=== PATIENT | female | born 1945 | race Caucasian/White ===

== ENCOUNTER 2019-10-22 09:44 | Inpatient (IN) ==
[2019-10-22] MEDS ORDERED: DUONEB (A & A) INH ONE (10:14)
[2019-10-22] MEDS ORDERED: SOLU-MEDROL IV ONE (10:15)
--- NOTE | 2019-10-22 10:24 | PROVIDER DOCUMENTATION ---
HPI-General Adult - General Chief Complaint: Head Injury Stated Complaint: FALL,HEAD INJURY Time Seen by Provider: 10/22/19 09:46 Source: patient, family Allergies/Adverse Reactions: Patient Allergies Allergy/AdvReac Type Severity Reaction Status Date / Time Sulfa (Sulfonamide Allergy Unknown Unknown Verified 10/22/19 10:53 Antibiotics) Home Medications: Home Medication List Medication Instructions Recorded Confirmed Last Taken Type Atorvastatin Calcium [Lipitor] 20 mg PO QHS 09/08/13 10/22/19 Unknown History Gabapentin [Neurontin] 300 mg PO QHS 09/08/13 10/22/19 Unknown History Indapamide [Lozol] 1.25 mg PO DAILY 09/08/13 10/22/19 Unknown History Tolterodine Tartrate [Detrol LA] 4 mg PO DAILY 09/08/13 10/22/19 Unknown History Tramadol [Ultram] 50 mg PO Q8HR PRN 09/08/13 10/22/19 Unknown History Albuterol Sulfate 2.5 mg INHALATION BID 10/22/19 10/22/19 Unknown History Alendronate [Fosamax] 70 mg PO DIRECTED 10/22/19 10/22/19 Unknown History Aspirin 325 mg PO DAILY 10/22/19 10/22/19 Unknown History Benzonatate [Tessalon Perle] 100 mg PO TID PRN 10/22/19 10/22/19 Unknown History Budesonide 0.25 mg INHALATION BID 10/22/19 10/22/19 Unknown History Calcium Carbonate [Calcium] 600 mg PO DAILY 10/22/19 10/22/19 Unknown History Dronedarone HCl [Multaq] 400 mg PO BID 10/22/19 10/22/19 Unknown History Fexofenadine HCl [Allergy Relief] 1 tab PO QHS 10/22/19 10/22/19 Unknown History Fluticasone Propionate 1 spray INTRANASAL QHS 10/22/19 10/22/19 Unknown History Fluticasone/Salmet 250/50 INH 1 puff INH QHS 10/22/19 10/22/19 Unknown History [Advair 250/50 Diskus] Guaifenesin E.r. [Mucinex] 600 mg PO BID 10/22/19 10/22/19 Unknown History Iron,Carbonyl/Ascorbic Acid [Iron 1 tab PO DAILY 10/22/19 10/22/19 Unknown History 100-Vitamin C Tablet] Losartan Potassium 50 mg PO QHS 10/22/19 10/22/19 Unknown History Montelukast [Singulair] 10 mg PO QHS 10/22/19 10/22/19 Unknown History Multivitamin [Multivitamins] 1 ea PO DAILY 10/22/19 10/22/19 Unknown History Omeprazole 40 mg PO DAILY 10/22/19 10/22/19 Unknown History Potassium Chloride E.r. [Klor-Con] 20 meq PO BID 10/22/19 10/22/19 Unknown History Sertraline HCl [Zoloft] 100 mg PO DAILY 10/22/19 10/22/19 Unknown History - History of Present Illness -Gen Adult Nature of Presenting Problems: [id number] presents to the ER accompanied by her grandson. 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 However, she can answer some yes and no questions. Grandson reports that the patient fell this morning getting out of her wheelchair going to the bathroom. She has bruising to the right with hematoma to the right side of her forehead and bruising with mild swelling to the right orbital area. She has bruising to the right hand and wrist with a large hematoma to the right forearm. She also has a large bruise to her right hip. All these areas the patient reports pain with a "yes". While palpating the rest of her body, she answers no. The grandson called his Mother, who reports over the phone, that sometime last night, the patient's gave her a granola bar, to which she began vomiting. Shortly after, the patient began coughing and wheezing then running a low grade fever of 100.2. The pt does have a productive cough. Reported history of multiple episodes of pneumonia due to aspiration. She is non-toxic in appearance and afebrile at this time. She is Awake and Alert. Location of Pain/Injury: reports: head, face, upper extremity, other (right hip) Onset/Duration: reports: just prior to arrival Review of Systems - Adult - REVIEW OF SYSTEMS - ADULT Constitutional: reports: see HPI, fever Eyes: reports: no symptoms reported Ears, Nose, Mouth & Throat: reports: no symptoms reported. denies: ear discharge, ear pain Cardiovascular: reports: no symptoms reported. denies: chest pain Respiratory: reports: see HPI, cough, wheezing. denies: dyspnea on exertion, shortness of breath Gastrointestinal: reports: no symptoms reported. denies: abdominal pain, nausea, vomiting Genitourinary: reports: no symptoms reported Musculoskeletal: reports: see HPI Integumentary: reports: see HPI Neurological: reports: see HPI, loss of balance. denies: dizziness/vertigo, hea dache/migraines Psychiatric: reports: no symptoms reported Endocrine: reports: no symptoms reported Hematologic/Lymphatic: reports: no symptoms reported Allergic/Immunologic: reports: no symptoms reported All Other Systems: Reviewed and Negative Past History - Adult - PAST MEDICAL HISTORY-ADULT Review of Records: reports: Old Records Reviewed, Nursing Assessment Review, Medications Reviewed, Social history reviewed & non-contributory. Major Childhood Illnesses: reports: denies history Cardiovascular: reports: denies history, A-Fib, HTN, hyperlipidemia Respiratory: reports: pneumonia Gastrointestinal: reports: denies history Obstetrical/Gynecological: reports: denies history Genitourinary: reports: denies history Musculoskeletal: reports: denies history Neurological: reports: CVA (with residual right hemiparesis, with some expressive aphasia) Psychiatric: reports: denies history Endocrine/Immune: reports: denies history Other Conditions: reports: denies history - PRIOR SURGERIES/PROCEDURES Surgical/Procedure History: reports: reviewed, not pertinent, hysterectomy - IMMUNIZATION STATUS Childhood Immunizations: See Nurse Assessment Flu Vaccine: See Nurse Assessment - FAMILY HISTORY Family History: reviewed, not pertinent - SOCIAL HISTORY Smoking: denies, non-smoker Substance Use: none/never Alcohol Use Frequency: never Living Situation: family Physical Exam-General - PHYSICAL EXAM-ADULT Initial Vital Signs Reviewed: Yes - CONSTITUTIONAL General Appearance: alert, no apparent distress - EYES Eyes: PERRL/EOMI, pink conjunctivae - HEAD, EARS, NOSE, MOUTH & THROAT HENMT: moist mucous membranes, TMs normal, frontal tenderness (right forehead) - NECK Neck: non-tender, full range of motion, supple. negative: lymphadenopathy - RESPIRATORY Respiratory: no respiratory distress, no accessory muscle use, decreased breath sounds, rhonchi (bilateral lower lobes) - CARDIOVASCULAR Cardiovascular: regular rate, rhythm, no edema - GASTROINTESTINAL (ABDOMEN) Abdominal Exam: non tender, soft - MUSCULOSKELETAL Back Exam: normal inspection Extremity: normal capillary refill. negative: normal gait (rightt sided weakness due to previous CVA), deformity - SKIN Integumentary: abrasion(s) (right hand), ecchymosis (right forehead, right orbital area, right forearm, right hand, right wrist), tenderness (right forehead, right orbital area, right forearm, right hand, right wrist), other (contusion right forehead, right forearm) - PSYCHIATRIC Psych/Mental Status: normal mood/affect (baseline per family) Progress - PLAN OF CARE/RESULTS Progress/Plan/Lab Results: Vital Signs - 8 hr 10/22/19 09:49 Temperature 98.6 F Pulse Rate 74 Respiratory Rate 19 Blood Pressure 132/58 O2 Sat by Pulse Oximetry 94 L Orders Category Date Time Status Saline Loc NOW Care 10/22/19 10:14 Active CHEST-2 VIEWS [RAD] Stat Exams 10/22/19 10:[address] ANGIOGRAM HEAD/NECK [CT] Stat Exams 10/22/19 10:[address] MAXILLOFACIAL(SINUS) W/O CO [CT] Stat Exams 10/22/19 10:09 Ordered FOREARM-RIGHT [RAD] Stat Exams 10/22/19 10:09 Ordered HAND COMPLETE RIGHT [RAD] Stat Exams 10/22/19 10:09 Ordered WRIST COMPLETE RIGHT [RAD] Stat Exams 10/22/19 10:09 Ordered XRAY PELVIS W/HIP 2-3VW RT [RAD] Stat Exams 10/22/19 10:11 Ordered CBC WITH ELECTRONIC DIFF [HEME] Stat Lab 10/22/19 10:09 Uncollected CK PROFILE [SP CHEM] Stat Lab 10/22/19 10:14 Uncollected COMPREHENSIVE METABOLIC PANEL [CHEM] Stat Lab 10/22/19 10:09 Uncollected LACTATE, PLASMA [CHEM] Stat Lab 10/22/19 10:14 Uncollected TROPONIN T HIGH SENSITIVITY Stat Lab 10/22/19 10:14 Uncollected UA NIMS W/REFLEX CULT [URINALYSIS] Stat Lab 10/22/19 10:09 Uncollected Albuterol 2.5MG/Ipratrop 0.5MG [Duoneb (A & A)] Med 10/22/19 10:14 Discontinued 3 ml INH NOW ONE Methylprednisolone Sod Succ [Solu-Medrol] Med 10/22/19 10:15 Discontinued 125 mg IV NOW ONE Aerosol Treatments Routine Oth 10/22/19 10:15 Active Aerosol Treatments Stat Oth 10/22/19 10:15 Active EKG [EKG] Stat Ther 10/22/19 10:14 Ordered Result Diagrams: 10/22/19 10:15 10/22/19 10:15 - REASSESSMENT Reassessment #1 Time Reassessed: 11:55 Status: unchanged (patient still awake and alert, no new injuries or complaints noted) - XRAY 1 XRAY: Right XRAY Study: Forearm Impression: Normal, See EMR Report ( FINDINGS: There is no discrete fracture, dislocation, or significant intrinsic osseous lesion. The visualized joint spaces are essentially unremarkable. There may be mild soft tissue edema at the proximal forearm. IMPRESSION: Suggestion of mild soft tissue edema but no evidence of acute osseous abnormality.) 2 XRAY: Right XRAY Study: Wrist, Hand Impression: See EMR Report (Hand:FINDINGS: There is no discrete fracture, dislocation, or significant intrinsic osseous lesion. There are mild IP joint degenerative changes and there is joint space narrowing at the radiocarpal joint. The surrounding soft tissues are essentially unremarkable. Wrist: IMPRESSION: No evidence of acute osseous abnormality. FINDINGS: There is no discrete fracture, dislocation, or significant intrinsic osseous lesion. There is at least mild degenerative joint space narrowing at the radiocarpal joint. There is mild widening of the scapholunate joint. This can be associated with a scapholunate ligament injury. If so, it is not necessarily acute. The surrounding soft tissues are essentially unremarkable. IMPRESSION: Mild degenerative changes and mild widening of the scapholunate joint space. Please see above discussion.) 3 XRAY: Right XRAY Study: Hip Impression: Normal, See EMR Report (FINDINGS: There are degenerative changes at the lower lumbar spine. There is no discrete fracture, dislocation, or significant intrinsic osseous lesion involving the pelvis or hips. The hip joint spaces are fairly well-preserved. The surrounding soft tissues are essentially unremarkable. IMPRESSION: No evidence of acute osseous abnormality.) 4 XRAY Study: Chest Impression: See EMR Report (FINDINGS: The central vasculature is prominent and there are vague infiltrates at both lung bases likely representing pulmonary edema with pulmonary venous congestion. There is no definite pleural fluid collection or pneumothorax. There is cardiomegaly. IMPRESSION: Cardiomegaly with suggestion of pulmonary venous congestion and mild coronary edema. Electronically signed by Rg Rodriguez 10/22/2019 10:51 AM) - CT/MRI 1 CT Study: Head, Neck Impression: See EMR Report ( Head: There is extensive encephalomalacia in the left MCA distribution, stable. There is no definite acute infarct given the limited sensitivity of CT versus MRI. There is no discrete intracranial mass, mass effect, or intracranial hemorrhage. There is right frontal scalp edema. The calvaria is intact. C-spine: There is advanced multilevel degenerative disc disease with loss of disc space height and marginal osteophyte formation. It is very similar to the previous study. Otherwise, there is no discrete fracture, subluxation, or intrinsic osseous lesion. The surrounding soft tissues are essentially unremarkable. IMPRESSION: 1.Stable left MCA distribution encephalomalacia. No evidence of acute intracranial pathology. 2.Right frontal scalp edema. 3.Advanced multilevel degenerative arthropathy but no evidence of fracture or other definite acute C-spine injury.) 2 CT Study: Facial Bones Impression: See EMR Report ( FINDINGS: There is a tiny chronic left nasal bone defect that was present on the prior head CT from 2013. There is no evidence of acute facial bone fracture. Specifically, the orbits, mandible, mastoids, maxilla, and pterygoid plates are intact. 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 There is right periorbital soft tissue edema. There is no evidence of retrobulbar hematoma. The globes are intact. There is no evidence of intrasinus hemorrhage. IMPRESSION: Right periorbital soft tissue edema but no evidence of acute facial bone fracture.) - CONSULTS/PCP/HOSPITALIST Notification #1 *Consult/PCP/Hospitalist*: Dr Pedroza Time Discussed: 12:08 Reason/Comments: acute kidney injury, leukocytosis, pulmonary edema Consult Disposition: Admit Departure - Departure Date of Disposition Decision: 10/22/19 Time of Disposition Decision: 12:08 DIAGNOSIS: ROMELIA (acute kidney injury) Pulmonary edema Qualifiers: Chronicity: acute Qualified Code(s): J81.0 - Acute pulmonary edema Leukocytosis Qualifiers: Leukocytosis type: unspecified Qualified Code(s): D72.829 - Elevated white blood cell count, unspecified Fall Qualifiers: Encounter type: initial encounter Qualified Code(s): W19.XXXA - Unspecified fall, initial encounter Scapholunate ligament injury with no instability Qualifiers: Encounter type: initial encounter Laterality: right Qualified Code(s): S69.91XA - Unspecified injury of right wrist, hand and finger(s), initial encounter Disposition: ADMITTED INPATIENT 09 Certified Medical Emergency: Emergent Condition: Stable Additional Instructions: ED Follow Up Instructions: You have been treated by a care provider in the Emergency Department. These instructions are being provided to you so you can have an understanding of how to care for yourself upon discharge. Upon discharge from the Emergency Department, you are responsible for making arrangements for follow-up care by a physician of your choice. Take all prescribed medications as directed. Return to the Emergency Department immediately for any new or worsening symptoms. You may call the Physician Referral phone number at [phone] to obtain a list of Physicians who are taking new patients. Referrals and Follow-Ups: Dane Mireles MD [Primary Care Provider] - - Critical Care Note This patient required my direct & personal management of CC.: No Attestation - Physician/ CARMITA Attestation Patient care was provided by Advanced Practice Provider:: Yes Advanced Practice Provider:: Lucius Aaron Advanced Practice Provider documentation review:: The Mid-level provider documentation, treatment plan and medical decision making was reviewed by the physician who agrees with all treatment and medical decision making by the P. The physician spent face to face time with patient:: No Advanced Practice Provider documentation review:: Supervising physician onsite and consulted in the evaluation and care of this patient. The physician did not have a face to face encounter with the patient.
[2019-10-22 10:38] LABS: BASO# 0.02 X1000 (0.0-0.2); BASO% 0.1 % (0.0-0.8); EOS# 0.06 X1000 (0.0-0.7); EOS% 0.3 % (0.0-10.0); HEMATOCRIT 34.9 % (37.0-47.0); HEMOGLOBIN 10.9 g/dL (12.0-16.0); IMM GRAN# 0.05 X1000 (0.0-0.04); IMM GRAN% 0.3 % (0.0-0.5); LYMPH# 1.25 X1000 (1.2-3.4); LYMPH% 7.2 % (20.5-51.1); MCH 29.5 PG (27-31); MCHC 31.2 g/dL (33-37); MCV 94.6 FL (81-99); MONO# 1.07 X1000 (0.11-0.59); MONO% 6.2 % (1.7-9.3); MPV 10.6 FL (7.4-10.4); NEUT# 14.84 X1000 (1.4-6.5); NEUT% 85.9 % (42.2-75.2); PLT 256 X1000 (130-400); RBC 3.69 XMIL (4.2-5.4); WBC 17.29 X1000 (4.8-10.8)
--- NOTE | 2019-10-22 10:46 | Diag Imaging Result Doc PS360 ---
EXAM: HAND COMPLETE RIGHT INDICATION: fall TECHNIQUE: 3 views COMPARISON: None. FINDINGS: There is no discrete fracture, dislocation, or significant intrinsic osseous lesion. There are mild IP joint degenerative changes and there is joint space narrowing at the radiocarpal joint. The surrounding soft tissues are essentially unremarkable. IMPRESSION: No evidence of acute osseous abnormality. Electronically signed by Rg Rodriguez 10/22/2019 10:43 AM
--- NOTE | 2019-10-22 10:47 | Diag Imaging Result Doc PS360 ---
EXAM: FOREARM-RIGHT INDICATION: fall TECHNIQUE: 2 views COMPARISON: None. FINDINGS: There is no discrete fracture, dislocation, or significant intrinsic osseous lesion. The visualized joint spaces are essentially unremarkable. There may be mild soft tissue edema at the proximal forearm. IMPRESSION: Suggestion of mild soft tissue edema but no evidence of acute osseous abnormality. Electronically signed by Rg Rodriguez 10/22/2019 10:45 AM
--- NOTE | 2019-10-22 10:49 | Diag Imaging Result Doc PS360 ---
EXAM: WRIST COMPLETE RIGHT INDICATION: fall TECHNIQUE: 3 views COMPARISON: None. FINDINGS: There is no discrete fracture, dislocation, or significant intrinsic osseous lesion. There is at least mild degenerative joint space narrowing at the radiocarpal joint. There is mild widening of the scapholunate joint. This can be associated with a scapholunate ligament injury. If so, it is not necessarily acute. The surrounding soft tissues are essentially unremarkable. IMPRESSION: Mild degenerative changes and mild widening of the scapholunate joint space. Please see above discussion. Electronically signed by Rg Rodriguez 10/22/2019 10:47 AM
--- NOTE | 2019-10-22 10:52 | Diag Imaging Result Doc PS360 ---
EXAM: XRAY PELVIS W/HIP 2-3VW RT INDICATION: fall TECHNIQUE: 3 views COMPARISON: None. FINDINGS: There are degenerative changes at the lower lumbar spine. There is no discrete fracture, dislocation, or significant intrinsic osseous lesion involving the pelvis or hips. The hip joint spaces are fairly well-preserved. The surrounding soft tissues are essentially unremarkable. IMPRESSION: No evidence of acute osseous abnormality. Electronically signed by Rg Rodriguez 10/22/2019 10:49 AM
--- NOTE | 2019-10-22 10:54 | Diag Imaging Result Doc PS360 ---
EXAM: CHEST-2 VIEWS INDICATION: SOB TECHNIQUE: 2 views COMPARISON: 04/14/2017 FINDINGS: The central vasculature is prominent and there are vague infiltrates at both lung bases likely representing pulmonary edema with pulmonary venous congestion. There is no definite pleural fluid collection or pneumothorax. There is cardiomegaly. IMPRESSION: Cardiomegaly with suggestion of pulmonary venous congestion and mild coronary edema. Electronically signed by Rg Rodriguez 10/22/2019 10:51 AM
[2019-10-22 10:57] LABS: ALB/GLOB RATIO 1.2; ALBUMIN 3.9 g/dL (3.5-5.0); CALCIUM 9.5 mg/dL (8.8-10.2); CREATININE 1.4 mg/dL (0.5-0.9); POTASSIUM 4.9 mmol/L (3.5-5.1); TOTAL BILIRUBIN 0.53 mg/dL (0.20-1.00); TOTAL PROTEIN 7.1 g/dL (6.3-8.3)
[2019-10-22 11:21] LABS: CK-MB 10.18 ng/mL (0.0-5.0)
--- NOTE | 2019-10-22 11:40 | Diag Imaging Result Doc PS360 ---
EXAM: CT HEAD/C-SPINE W/O CONTRAST INDICATION: fall TECHNIQUE: This exam was performed using automated exposure control, adjustment of mA or kV according to patient size, and/or use of iterative reconstruction technique. COMPARISON: CT head dated 10/27/[address] head and C-spine dated 09/30/2015 FINDINGS: Head: There is extensive encephalomalacia in the left MCA distribution, stable. There is no definite acute infarct given the limited sensitivity of CT versus MRI. There is no discrete intracranial mass, mass effect, or intracranial hemorrhage. There is right frontal scalp edema. The calvaria is intact. C-spine: There is advanced multilevel degenerative disc disease with loss of disc space height and marginal osteophyte formation. It is very similar to the previous study. Otherwise, there is no discrete fracture, subluxation, or intrinsic osseous lesion. The surrounding soft tissues are essentially unremarkable. IMPRESSION: 1.Stable left MCA distribution encephalomalacia. No evidence of acute intracranial pathology. 2.Right frontal scalp edema. 3.Advanced multilevel degenerative arthropathy but no evidence of fracture or other definite acute C-spine injury. Electronically signed by Rg Rodriguez 10/22/2019 11:37 AM
--- NOTE | 2019-10-22 11:47 | Diag Imaging Result Doc PS360 ---
EXAM: CT MAXILLOFACIAL(SINUS) W/O CO INDICATION: fall with orbital trauma TECHNIQUE: COMPARISON: No prior dedicated facial bone CT is available for comparison. FINDINGS: There is a tiny chronic left nasal bone defect that was present on the prior head CT from 2013. There is no evidence of acute facial bone fracture. Specifically, the orbits, mandible, mastoids, maxilla, and pterygoid plates are intact. 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 There is right periorbital soft tissue edema. There is no evidence of retrobulbar hematoma. The globes are intact. There is no evidence of intrasinus hemorrhage. IMPRESSION: Right periorbital soft tissue edema but no evidence of acute facial bone fracture. Electronically signed by Rg Rodriguez 10/22/2019 11:44 AM
[2019-10-22] MEDS ORDERED: LASIX IV ONE (12:10)
[2019-10-22 12:14] LABS: URINE SOURCE CATH
[2019-10-22 12:16] LABS: BILIRUBIN URINE NEGATIVE (NEGATIVE); BLOOD URINE TRACE (NEGATIVE); COLOR YELLOW; GLUCOSE URINE NEGATIVE (NEGATIVE); KETONE URINE NEGATIVE (NEGATIVE); LEUKOCYTES URINE NEGATIVE (NEGATIVE); NITRITE URINE NEGATIVE (NEGATIVE); PH URINE 5.5; PROTEIN URINE NEGATIVE (NEGATIVE); SP GRAVITY URINE 1.015; TURBIDITY URINE CLEAR (CLEAR); UROBILINOGEN URINE NORMAL (NORMAL)
[2019-10-22 12:18] LABS: UR EPITHELIAL CELLS <10 /HPF (<10); URINE BACTERIA NEGATIVE /HPF; URINE RBC <10 /HPF (<10); URINE WBC <10 /HPF (<10)
[2019-10-22] MEDS ORDERED: NS 1,000 ML IV ONE ×2 (12:23→16:00)
[2019-10-22] MEDS ORDERED: VANCOMYCIN IV PER PHARMACY MISC SCH (12:30)
--- NOTE | 2019-10-22 12:31 | EKG Report ---
Test Performed on : 10/22/2019 12:21:09 PM Test Reason : sob Blood Pressure : / mmHG Vent. Rate : 077 BPM Atrial Rate : 312 BPM P-R Int : 000 ms QRS Dur : 090 ms QT Int : 384 ms P-R-T Axes : 000 -26 013 degrees QTc Int : 434 ms Atrial fibrillation. Low voltage QRS Nonspecific ST and T wave abnormality Abnormal ECG When compared with ECG of 27-OCT-2017 07:27, No significant change was found Unconfirmed Result
[2019-10-22] MEDS ORDERED: VANCOMYCIN 1,500 MG in NS 250 ML IV ONE (13:00)
[2019-10-22] MEDS ORDERED: TESSALON PO PRN (13:06)
[2019-10-22] MEDS ORDERED: TYLENOL PO PRN (13:06)
[2019-10-22] MEDS ORDERED: ZOFRAN IV PRN (13:06)
[2019-10-22] MEDS ORDERED: ULTRAM PO PRN (13:06)
[2019-10-22] MEDS: ZOSYN 3.375 GM in NS 50 ML IV SCH ×2 (13:36→17:37)
--- NOTE | 2019-10-22 14:28 | HISTORY AND PHYSICAL ---
PRIMARY CARE PROVIDER: Manav Barnett. CHIEF COMPLAINT: Fall and vomiting and fever. HISTORY OF PRESENT ILLNESS: Ms Cammy Godfrey is a 74-year-old female with a medical history of atrial fibrillation, hypertension, hyperlipidemia, history of aspiration pneumonia, history of CVA with right-sided hemiparesis and weakness, who apparently yesterday morning had a low-grade temp after vomiting in the middle of the night. Apparently, she had some the night that she does not normally eat and it was late when she ate causing her to have significant reflux, but since that time, she started having wheezing and coughing up stuff and low-grade fever up to 100. Apparently, when she gets fever, she tends to have more weakness so around 2 o'clock this morning the family member was contacted after the found the patient in the floor around 1:30 this morning. Apparently, she had gotten in her wheelchair, had gone to the living room, was attempting to get into her lift chair. He found her face down, so it is really unknown if she had a syncopal spell or it was just from the weakness and the patient is not real clear on this either. She does have somewhat expressive aphasia and has had that since her stroke in the year 1999. She has bruising along the right side of her body on her right forehead. There is no acute injuries that can be currently found and there may possibly be some ligament injury on the right wrist, but otherwise no significant injuries. No more vomiting since that time, but on her x-ray there has pulmonary edema mixed with some aspiration pneumonia. Her white count is elevated at 17,000. She is afebrile at this time and she shows signs of acute kidney injury, dehydration, and traumatic rhabdomyolysis that is mild in nature so we are going to admit her, give her some IV fluids. However, she did get some Lasix earlier and start her on some IV antibiotics. PAST MEDICAL HISTORY: 1. Hyperlipidemia. 2. Neuropathy. 3. Overactive bladder. 4. Asthma. 5. Atrial fibrillation that is paroxysmal. 6. Seasonal allergies. 7. Hypertension. 8. Gastroesophageal reflux disease. 9. Anxiety. 10. Cerebrovascular accident in to the year 1999 with right hemiparesis. SURGICAL HISTORY: 1. Hysterectomy. 2. Cataract surgery. SOCIAL HISTORY: Denies tobacco, alcohol or illicit drug use. She lives at home with her . She is wheelchair bound and has expressive aphasia. FAMILY HISTORY: Mother had some unknown cancer. Father had stroke. ALLERGIES: Sulfa. HOME MEDICATIONS: 1. Advair 250/50 1 puff inhaled nightly. 2. Fexofenadine HCl 180 mg p.o. nightly. 3. Fluticasone nightly. 4. Lipitor 20 mg p.o. nightly. 5. Losartan potassium 50 mg p.o. nightly. 6. Neurontin 300 mg p.o. nightly. 7. Singulair 10 mg p.o. nightly. 8. Ultram 50 mg p.o. every 8 hours p.r.n. 9. Albuterol inhaled twice daily. 10. Aspirin 325 mg p.o. daily. 11. Budesonide 0.25 mg inhaled twice daily. 12. Calcium carbonate 600 mg p.o. daily. 13. Detrol LA. 4 mg p.o. daily. 14. Fosamax 70 mg p.o. as directed, 1 tab a week. 15. Iron with vitamin C 1 tablet p.o. daily. 16. Potassium chloride 20 mEq p.o. twice daily. 17. Lozol 1.25 mg p.o. daily. 18. Mucinex 600 mg p.o. twice daily. 19. Multaq 400 mg p.o. twice daily number. 20. Multivitamins 1 tablet p.o. daily. 21. Omeprazole 40 mg p.o. daily. 22. Tessalon 100 mg p.o. t.i.d. p.r.n. 23. Zoloft 100 mg p.o. daily. REVIEW OF SYSTEMS: Fourteen point review of systems were complete. All were negative for those mentioned above HPI. PHYSICAL EXAMINATION: VITAL SIGNS: Temperature 98.6 degrees, heart rate 90, respiratory rate 20, blood pressure 113/50, O2 saturation 95% on 2 L nasal cannula. 5 feet 3 inches tall, 140 pounds. BMI is 24.8. GENERAL: Ms. Cammy Godfrey is a 74-year-old female. She is in no acute distress. She has difficulties answering questions with her expressive aphasia. HEENT: She has a traumatic injury to the right frontal scalp area with bruising. No open wounds. Mucous membranes are dry. Pupils are equal and reactive. Extraocular moves intact next. NECK: Trachea midline. CARDIOVASCULAR: Irregularly irregular rate and rhythm. No rubs, gallops, murmurs. No lower extremity edema. +2 dorsalis and radial pulses. Negative JVD or carotid bruits. PULMONARY: Decreased in the bases. No accessory muscle use or work of breathing noted Soft, nontender, nondistended. Positive bowel sounds x4. EXTREMITIES: Right hemiparesis very weak hand track greaser on the right, about a 4/5 strength on the left. NEUROLOGIC: Oriented to name. Follows followed simple commands. SKIN: Bruising along the right arm in the right forehead. LABORATORY DATA: White blood cells 17,000, hemoglobin 10, hematocrit 34, platelet count 256,000. Sodium 133, potassium 4.9, BUN 27, creatinine is 1.4, glucose 93, calcium 9.5, bilirubin 0.53, AST 36, ALT 22. CK is 518, troponin 19, proBNP 1009 albumin 3.9, lactate 1.6. Urinalysis trace blood. IMAGING: Head/ cervical spine CT: Stable left MCA distribution encephalomalacia. No evidence of acute intracranial pathology. Right frontal scalp edema. Advanced multilevel degenerative arthropathy but no acute fractures in the C-spine. Chest x-ray: Cardiomegaly with suggestion of pulmonary venous congestion and mild coronary edema but there is infiltrates in both lungs. I suspect that there is also aspiration pneumonia. Hip and pelvic x-ray: No evidence of acute findings. Right wrist x-ray possible scapholunate ligament injury but no fractures. Maxillofacial CT: Right periorbital soft tissue edema but no evidence of acute facial bone fracture. Right hand x-ray no injury. Right forearm x-ray: Mild soft tissue edema but no bone injury. EKG atrial fibrillation, rate 77, QTc 434. ASSESSMENT/PLAN: 1. Fall. She has bruising along the right side of her face, forehead, right forearm, right wrist, possible some ligament injury on the right wrist. 2. Traumatic rhabdomyolysis with dehydration and mild acute kidney injury. She is going to get at least 1 L fluids. We will check her CKs again in the morning. 3. Recent emesis with high suspicion for aspiration pneumonia and leukocytosis, reported low- grade fever. However, she does not have onr now, and she will be started on broad-spectrum antibiotics. 4. Gastroesophageal reflux disease with recent emesis. Continue Prilosec, Zofran for nausea. 5. Mild hypoxemic respiratory failure only requiring 2 L of oxygen for now. She is on nebulizers. She has a history of asthma. 6. Seasonal allergies. We will continue some of those medications. 7. Hyperlipidemia. Continue Lipitor her statin. 8. Hypertension. We will hold off on the losartan for now. 9. History of cerebrovascular accident. Continue her aspirin. 10. Chronic atrial fibrillation on Multaq. We will continue and continue her high dose aspirin. 11. Anxiety history with Zoloft, so we will continue that. 12. Deep venous thrombosis prophylaxis sequential compression devices. Dictated by BASILIO Rivera for Hugo Aguila MD cc: BASILIO Rivera MD
[2019-10-22] MEDS: DUONEB (A & A) INH SCH ×2 (15:22→22:37)
--- NOTE | 2019-10-22 16:27 | HISTORY AND PHYSICAL ---
ADDENDUM: SUBJECTIVE: The patient has no major complaints. She came in because of a fall. She got sick last night after eating chicken nuggets and wolof fries. It is not something she usually eats. There was concern over possible aspiration-type pneumonia. She fell on the right side of her face and side and has bruising associated. On workup in the ER, there was no fracture although her hand is in a splint on the right side which may be a scapholunate ligament injury, but no acute fracture. The rest of her testing was negative. She does have a left MCA distribution encephalomalacia, but no acute stroke. So she will be admitted for rhabdo treatment. We are going to continue fluids. There is question of aspiration versus CHF. We will continue to monitor closely. DISPOSITION: Pending her clinical status. cc: Hugo Aguila MD
[2019-10-22] MEDS: SODIUM BICARBONATE 8.4% 100 MEQ in STERILE WATER INJ. 1,000 ML IV SCH (17:16)
--- NOTE | 2019-10-22 17:22 | ECHO REPORT ---
ORDER DATE: 10/22/2019 INTERPRETING PHYSICIAN: Miguel Cervantes MD INDICATION: Pulmonary edema. M-MODE MEASUREMENTS: Left ventricle end diastole: 4.4 cm. Left ventricle end systole: 2.6 cm. Posterior wall: 0.8 cm. Interventricular septum: 1 cm. Left atrium: 4.3 cm. Aortic diameter: 2.9 cm. SUMMARY OF 2-DIMENSIONAL IMAGIN. Left ventricular function is excellent with an ejection fraction of 65%. There is no wall motion abnormality noted. 2. The right ventricle is normal. 3. The aortic valve looks normal. There is a mild degree of aortic regurgitation. Color flow mapping is unremarkable. 4. The mitral valve shows a mild degree of regurgitation. 5. Pulse wave Doppler of mitral inflow shows mild reversal of the E and the A ratio. The ratio is 0.7. 6. Tissue Doppler of septal and lateral mitral annulus averages 10 cm. 7. There is no diastolic dysfunction. 8. The tricuspid valve shows a mild degree or regurgitation. 9. Pulmonary pressure appears to be normal. 10.The pulmonic valve appears to be grossly normal. Color flow mapping is unremarkable. 11.There is no pericardial effusion and no sign of thrombus. CONCLUSION: In summary, this echocardiographic study shows: 1. Normal left ventricular systolic function. 2. No evidence of any significant valvular abnormality. 3. No diastolic dysfunction. 4. Pulmonary pressure is probably normal. 5. There is mild degree of aortic regurgitation. Clinical correlation is recommended. cc: MD Greta Eaton CRNP
[2019-10-22] MEDS: MUCINEX PO SCH (21:50)
[2019-10-22] MEDS: SINGULAIR PO SCH (21:50)
[2019-10-22] MEDS: MULTAQ PO SCH (21:50)
[2019-10-22] MEDS: ALLEGRA PO SCH (21:51)
[2019-10-22] MEDS: NEURONTIN PO SCH (21:51)
[2019-10-22] MEDS: LIPITOR PO SCH (21:51)
[2019-10-22] MEDS: FLONASE NAS SCH (21:51)
[2019-10-22] MEDS: PULMICORT INH SCH (22:37)
[2019-10-23] MEDS: ZOSYN 3.375 GM in NS 50 ML IV SCH ×4 (00:47→18:03)
[2019-10-23] MEDS: DUONEB (A & A) INH SCH ×4 (03:16→21:00)
[2019-10-23 05:42] LABS: HEMATOCRIT 32.4 % (37.0-47.0); HEMOGLOBIN 10.4 g/dL (12.0-16.0); IMM GRAN# 0.04 X1000 (0.0-0.04); IMM GRAN% 0.3 % (0.0-0.5); LYMPH# 0.57 X1000 (1.2-3.4); LYMPH% 4.3 % (20.5-51.1); MCHC 32.1 g/dL (33-37); MCV 93.4 FL (81-99); MONO# 0.85 X1000 (0.11-0.59); MONO% 6.4 % (1.7-9.3); NEUT# 11.86 X1000 (1.4-6.5); PLT 260 X1000 (130-400); RBC 3.47 XMIL (4.2-5.4); RDW 13.7 % (11.5-14.5); WBC 13.32 X1000 (4.8-10.8)
[2019-10-23 05:59] LABS: ALB/GLOB RATIO 0.8; ALBUMIN 3.2 g/dL (3.5-5.0); CALCIUM 8.7 mg/dL (8.8-10.2); CREATININE 1.1 mg/dL (0.5-0.9); MAGNESIUM 2.2 mg/dL (1.5-2.7); POTASSIUM 3.7 mmol/L (3.5-5.1); TOTAL BILIRUBIN 0.46 mg/dL (0.20-1.00)
[2019-10-23] MEDS: PRILOSEC PO SCH (06:04)
[2019-10-23] MEDS: SODIUM BICARBONATE 8.4% 100 MEQ in STERILE WATER INJ. 1,000 ML IV SCH ×2 (06:53→10:38)
[2019-10-23 07:02] LABS: BANDS 6 % (0-1); LARGE PLATELETS 1+; LYMPHS 2 % (21-51); MONO 4 % (1-9); SEGS 88 % (42-75)
[2019-10-23] MEDS: ZOLOFT PO SCH (09:14)
[2019-10-23] MEDS: MUCINEX PO SCH ×2 (09:14→22:46)
[2019-10-23] MEDS: ASPIRIN PO SCH (09:14)
[2019-10-23] MEDS: CALTRATE 600 PO SCH (09:14)
[2019-10-23] MEDS: MULTAQ PO SCH ×2 (09:14→22:46)
[2019-10-23] MEDS: DETROL LA PO SCH (09:14)
[2019-10-23] MEDS: ICAR-C PO SCH (09:14)
[2019-10-23] MEDS: THERA M PLUS PO SCH (09:14)
--- NOTE | 2019-10-23 09:20 | Diag Imaging Result Doc PS360 ---
EXAM: CHEST-2 VIEWS 10/23/2019 HISTORY: pna; pulm edema TECHNIQUE: AP upright and lateral chest COMMENT: The inspiration is less optimal than on 10/22/2019. There continues to be perihilar opacity in the left upper lobe. There is some volume loss and opacity in the inferior portion of the right upper lobe. There are coarse opacities in the retrocardiac left lower lobe. These findings were all present on the previous study. Compared to 04/16/2017 the opacity in the left upper lobe was not present previously. There were similar opacities in the left base however. IMPRESSION: Pneumonia plus minus pulmonary fibrosis. Electronically signed by Jesus Sánchez 10/23/2019 9:17 AM
[2019-10-23] MEDS: PULMICORT INH SCH ×2 (09:58→21:00)
--- NOTE | 2019-10-23 16:17 | PROGRESS NOTE ---
DATE: 10/23/2019 SUBJECTIVE: Patient has no major complaints. OBJECTIVE: Vital Signs: Blood pressure is 129/80, heart rate of 93, respiratory rate is 16, temperature 97.9 degrees. 96% on 2 L. Cardiovascular: Regular rate and rhythm. Pulmonary: Bilateral breath sounds clear to auscultation. Gastrointestinal: Abdomen soft, nontender, nondistended. Bowel sounds are positive. LABORATORY DATA: White count 13, hemoglobin and hematocrit 10 and 32, platelets 260,000. Basic was normal. Creatinine 1.1. CPK 282. PROBLEM LIST: 1. Rhabdomyolysis with some acute kidney injury. Overall is improved. Continue sodium bicarbonate and follow. 2. Aspiration-type pneumonia. She seems to be doing okay. Continue antibiotics and follow. White count has dropped. 3. Gastroesophageal reflux disease. We will continue proton pump inhibitor and follow. 4. Chronic atrial fibrillation. She is on Multaq. I do not think she is on any stronger blood thinners. DISPOSITION: Anticipate possible discharge tomorrow. cc: Hugo Aguila MD
[2019-10-23] MEDS: NEURONTIN PO SCH (22:46)
[2019-10-23] MEDS: ALLEGRA PO SCH (22:46)
[2019-10-23] MEDS: LIPITOR PO SCH (22:46)
[2019-10-23] MEDS: FLONASE NAS SCH (22:46)
[2019-10-23] MEDS: SINGULAIR PO SCH (22:46)
[2019-10-24] MEDS: ZOSYN 3.375 GM in NS 50 ML IV SCH ×4 (00:54→19:06)
[2019-10-24] MEDS: DUONEB (A & A) INH SCH ×3 (03:00→15:19)
[2019-10-24] MEDS ORDERED: VANCOMYCIN 1,250 MG in NS 250 ML IV SCH ×2 (03:00→15:00)
[2019-10-24 05:34] LABS: BASO# 0.01 X1000 (0.0-0.2); BASO% 0.1 % (0.0-0.8); EOS# 0.11 X1000 (0.0-0.7); EOS% 0.6 % (0.0-10.0); HEMATOCRIT 31.9 % (37.0-47.0); HEMOGLOBIN 10.3 g/dL (12.0-16.0); IMM GRAN# 0.05 X1000 (0.0-0.04); IMM GRAN% 0.3 % (0.0-0.5); LYMPH% 6.5 % (20.5-51.1); MCH 30.3 PG (27-31); MCHC 32.3 g/dL (33-37); MCV 93.8 FL (81-99); MONO# 1.54 X1000 (0.11-0.59); MONO% 9.1 % (1.7-9.3); MPV 10.7 FL (7.4-10.4); NEUT# 14.18 X1000 (1.4-6.5); NEUT% 83.4 % (42.2-75.2); PLT 262 X1000 (130-400); RDW 13.7 % (11.5-14.5); WBC 16.99 X1000 (4.8-10.8)
[2019-10-24 06:07] LABS: ALB/GLOB RATIO 0.9; ALBUMIN 3.1 g/dL (3.5-5.0); CALCIUM 8.5 mg/dL (8.8-10.2); MAGNESIUM 2.1 mg/dL (1.5-2.7); POTASSIUM 3.4 mmol/L (3.5-5.1); TOTAL BILIRUBIN 0.49 mg/dL (0.20-1.00); TOTAL PROTEIN 6.4 g/dL (6.3-8.3)
[2019-10-24] MEDS: PRILOSEC PO SCH (06:47)
[2019-10-24] MEDS: PULMICORT INH SCH (09:07)
[2019-10-24] MEDS: ICAR-C PO SCH (10:00)
[2019-10-24] MEDS: MUCINEX PO SCH ×2 (10:00→20:27)
[2019-10-24] MEDS: CALTRATE 600 PO SCH (10:00)
[2019-10-24] MEDS: ZOLOFT PO SCH (10:00)
[2019-10-24] MEDS: ASPIRIN PO SCH (10:00)
[2019-10-24] MEDS: THERA M PLUS PO SCH (10:00)
[2019-10-24] MEDS: DETROL LA PO SCH (10:00)
[2019-10-24] MEDS: MULTAQ PO SCH ×2 (10:00→20:27)
--- NOTE | 2019-10-24 16:49 | PROGRESS NOTE ---
DATE: 10/24/2019 SUBJECTIVE: Patient has no major complaints. OBJECTIVE: vital signs: Blood pressure 132/53, heart rate 84, respiratory rate 18, temperature 98.5 degrees, 96% on 2 L. Cardiovascular: Regular rate and rhythm. Pulmonary: Bilateral breath sounds, clear to auscultation. Gastrointestinal: Soft, nontender, nondistended. Bowel sounds were positive. LABORATORIES: White count 16.9, hemoglobin and hematocrit 10 and 31, platelets 262,000. Potassium 3.4. CPK 181. PROBLEM LIST: 1. Rhabdomyolysis: We will continue to follow. She is I think basically resolving. Her CK was 181. Her creatinine is down to 1. I think we could probably stop her bicarbonate drip. 2. Aspiration-type pneumonia: She seems to be better although her white count did jump up a bit we are not quite clear why. She is not on any intravenous steroids. She is on vancomycin and Zosyn. May switch the vancomycin to Zyvox just because of potential renal issues and we may just switch her to that and see how she does. Repeat her chest x-ray tomorrow and monitor, so possibly home tomorrow if stable. cc: Hugo Aguila MD
[2019-10-24] MEDS: ZYVOX 600 MG/D5W 600 MG/300 ML IVPB IV SCH (17:08)
[2019-10-24] MEDS: ALLEGRA PO SCH (20:27)
[2019-10-24] MEDS: SINGULAIR PO SCH (20:27)
[2019-10-24] MEDS: LIPITOR PO SCH (20:27)
[2019-10-24] MEDS: NEURONTIN PO SCH (20:27)
[2019-10-24] MEDS: FLONASE NAS SCH (20:35)
[2019-10-25] MEDS: ZOSYN 3.375 GM in NS 50 ML IV SCH ×2 (02:02→09:49)
[2019-10-25] MEDS: DUONEB (A & A) INH SCH ×3 (03:05→09:29)
[2019-10-25] MEDS: PULMICORT INH SCH ×2 (03:17→09:29)
[2019-10-25 06:17] LABS: BASO# 0.02 X1000 (0.0-0.2); BASO% 0.2 % (0.0-0.8); EOS# 0.22 X1000 (0.0-0.7); EOS% 1.8 % (0.0-10.0); HEMATOCRIT 33.2 % (37.0-47.0); HEMOGLOBIN 10.6 g/dL (12.0-16.0); IMM GRAN# 0.06 X1000 (0.0-0.04); IMM GRAN% 0.5 % (0.0-0.5); LYMPH% 10.6 % (20.5-51.1); MCH 29.9 PG (27-31); MCHC 31.9 g/dL (33-37); MCV 93.8 FL (81-99); MONO% 10.6 % (1.7-9.3); MPV 10.6 FL (7.4-10.4); NEUT# 9.41 X1000 (1.4-6.5); NEUT% 76.3 % (42.2-75.2); PLT 275 X1000 (130-400); RBC 3.54 XMIL (4.2-5.4); RDW 13.4 % (11.5-14.5); WBC 12.31 X1000 (4.8-10.8)
[2019-10-25 06:29] LABS: AGAP 15; ALB/GLOB RATIO 0.9; ALKALINE PHOSPHATASE 50 U/L (32-104); BUN 12 mg/dL (8-22); CALCIUM 8.7 mg/dL (8.8-10.2); CHLORIDE 94 mmol/L (98-107); CK TOTAL 75 U/L (24-173); COSMO 271; CREATININE 0.9 mg/dL (0.5-0.9); ESTIMATED GFR > 60; GLUCOSE 90 mg/dL (70-104); GOT 27 U/L (10-30); GPT 17 U/L (10-36); POTASSIUM 3.3 mmol/L (3.5-5.1); SODIUM 136 mmol/L (136-145); TCO2 27 mmol/L (25-35); TOTAL BILIRUBIN 0.59 mg/dL (0.20-1.00); TOTAL PROTEIN 6.4 g/dL (6.3-8.3)
[2019-10-25] MEDS: PRILOSEC PO SCH (06:29)
[2019-10-25] MEDS: ZYVOX 600 MG/D5W 600 MG/300 ML IVPB IV SCH (06:29)
[2019-10-25 08:13] VITALS: BP 144/77
[2019-10-25] MEDS ORDERED: KLOR-CON PO ONE (09:01)
[2019-10-25] MEDS: ICAR-C PO SCH (09:49)
[2019-10-25] MEDS: THERA M PLUS PO SCH (09:49)
[2019-10-25] MEDS: MUCINEX PO SCH (09:49)
[2019-10-25] MEDS: ASPIRIN PO SCH (09:49)
[2019-10-25] MEDS: DETROL LA PO SCH (09:49)
[2019-10-25] MEDS: MULTAQ PO SCH (09:49)
[2019-10-25] MEDS: CALTRATE 600 PO SCH (09:49)
[2019-10-25] MEDS: ZOLOFT PO SCH (09:49)
--- NOTE | 2019-10-25 11:10 | DISCHARGE SUMMARY ---
ADMISSION DATE: 10/22/2019 DISCHARGE DATE: 10/25/2019 DISCHARGE DIAGNOSES: 1. Rhabdomyolysis. 2. Aspiration-type pneumonia. 3. Frequent falls. 4. History of chronic obstructive pulmonary disease. 5. Facial contusions. HISTORY: Briefly, this is a 74-year-old female who fell. She had a brief episode of confusion. She has a history of CVA with right-sided hemiparesis. She has had wheezing and coughing and low- grade fevers. She was found down on the floor for an unknown amount of time, she came in for evaluation with a white count and infiltrate on her x-ray so possible aspiration type pneumonia. She was placed on Zosyn and Zyvox. She was given fluids because of a mild rhabdomyolysis, and patient clinically improved. Apparently, her baseline functional status she is a little bit ambulatory, but not great strides of ambulation. In any case the day of discharge, she seems to be doing okay so anticipate discharge soon. DISCHARGE MEDICATIONS: 1. Advair 1 puff at bedtime. 2. Fexofenadine 180 at bedtime. 3. Fluticasone daily. 4. Lipitor 20 daily. 5. Losartan 50 daily. 6. Neurontin 300 at bedtime. 7. Singulair 10 at bedtime. 8. Tramadol p.r.n. 9. Albuterol. 10. Aspirin 325 daily. 11. Budesonide. 12. Calcium 600 daily. 13. Detrol 4 daily. 14. Fosamax 70 q.week. 15. Icar C daily. 16. Klor-Con 20 b.i.d. 17. Lozol 1.25 daily. 18. Mucinex 600 b.i.d. 19. Multaq 400 b.i.d. 20. Multivitamin daily. 21. Prilosec 40 daily. 22. Tessalon p.r.n. 23. Zoloft 100 daily. 24. Augmentin 500 q.12h for another 10 days. DISCHARGE CONDITION: Stable. cc: Hugo Aguila MD
== END 2019-10-25 12:53 | disposition home or self-care (01) | DRG 564 ==
LOC: ED 09:44 → 1N 13:56
PROVIDERS: ATTEND Internal Medicine